=== PATIENT | male | born 1995 | race Caucasian/White ===

== ENCOUNTER 2017-01-12 09:54 | Emergency (ER) | payer OTHER, SELFPAY | END 2017-01-12 11:43 | disposition home or self-care (01) | LOC: MADERS 09:54 | DX: B34.9 Viral infection, unspecified (principal); F17.210 Nicotine dependence, cigarettes, uncomplicated | CPT/HCPCS: 99283 ==

== ENCOUNTER 2017-04-28 19:29 | Emergency (ER) | payer SELFPAY ==
[2017-04-28] MEDS ORDERED: Ondansetron ODT 4 MG TAB ONE (20:51)
== END 2017-04-28 21:03 | disposition home or self-care (01) ==
LOC: MADERS 19:29
DX: K52.9 Noninfective gastroenteritis and colitis, unspecified (principal); F17.210 Nicotine dependence, cigarettes, uncomplicated; F31.9 Bipolar disorder, unspecified; F90.9 Attention-deficit hyperactivity disorder, unspecified type
CPT/HCPCS: 99283; Q0162

== ENCOUNTER 2017-06-26 17:00 | Emergency (ER) | payer SELFPAY ==
[2017-06-26] MEDS ORDERED: HYDROcodone/Acetaminophen 10/325 mg Tablet ONE (19:39)
[2017-06-26] MEDS ORDERED: Adacel (T-DAP) 0.5 ML VIAL ONE (19:39)
[2017-06-26] MEDS ORDERED: Ciprofloxacin 500 MG TAB ONE (19:39)
[2017-06-26] MEDS ORDERED: Naproxen 500 MG TAB ONE (19:39)
--- NOTE | 2017-06-26 20:35 | RAD ---
RIGHT THUMB THREE VIEWS: HISTORY: Right thumb injury. FINDINGS: Joint spaces are preserved. No acute fracture, dislocation, or metallic foreign bodies. IMPRESSION: No acute osseous abnormalities are demonstrated. POS: [facility]
== END 2017-06-26 20:10 | disposition home or self-care (01) ==
LOC: MADERS 17:00
DX: S61.011A Laceration without foreign body of right thumb without damage to nail, initial encounter (principal); F90.9 Attention-deficit hyperactivity disorder, unspecified type; F31.9 Bipolar disorder, unspecified; F17.210 Nicotine dependence, cigarettes, uncomplicated; W45.0XXA Nail entering through skin, initial encounter
CPT/HCPCS: 90471; 90715

== ENCOUNTER 2018-03-22 08:34 | Emergency (ER) | payer SELFPAY | END 2018-03-22 09:07 | disposition home or self-care (01) | LOC: MADERS 08:34 | DX: R10.819 Abdominal tenderness, unspecified site (principal); R07.89 Other chest pain; F90.9 Attention-deficit hyperactivity disorder, unspecified type; F31.9 Bipolar disorder, unspecified | CPT/HCPCS: 99282 ==

== ENCOUNTER 2018-05-12 23:01 | Emergency (ER) | payer OTHER, SELFPAY ==
[2018-05-12] MEDS ORDERED: Ibuprofen 800 MG TAB ONE (23:21)
--- NOTE | 2018-05-12 23:44 | RAD ---
LEFT RIBS GREATER THAN OR EQUAL TWO VIEW WITH PA CHEST X-RAY 05/12/18 HISTORY: Trauma. COMPARISON: None. FINDINGS: Lungs are clear. No displaced left sided rib fracture. The cardiac silhouette and mediastinal contour is within normal limits. IMPRESSION: Normal exam. POS: [facility]
== END 2018-05-13 00:09 | disposition home or self-care (01) ==
LOC: MADERS 23:01
DX: S20.212A Contusion of left front wall of thorax, initial encounter (principal); F90.9 Attention-deficit hyperactivity disorder, unspecified type; F31.9 Bipolar disorder, unspecified; Z87.891 Personal history of nicotine dependence; W01.0XXA Fall on same level from slipping, tripping and stumbling without subsequent striking against object, initial encounter

== ENCOUNTER 2019-08-28 14:40 | Emergency (ER) | payer SELFPAY ==
[2019-08-28 15:51] LABS: #Basophils 0.1 thou/uL (0.0-0.2); #Eosinphils 0.1 thou/uL (0.0-0.7); #Lymphocytes 2.5 thou/uL (1.20-3.40); #Monocytes 0.7 thou/uL (0.11-0.59); #Neutrophils 6.1 thou/uL (1.40-6.50); %Basophils 1.3 % (0.0-1.0); %Eosinophils 1.5 % (0.0-10.0); %Monocytes 7.4 % (0.0-10.0); %Neutrophils 63.8 % (42.0-75.0); Hemoglobin 14.5 g/dL (14.0-18.0); Mean Corpuscular HGB CONC 32.2 g/dL (32.0-36.0); Mean Corpuscular Hemoglobin 27.9 pg (27.0-31.0); Mean Corpuscular Volume 86.7 fL (78.0-98.0); Mean Platelet Volume 6.8 fL (7.4-10.4); Platelet Count 303 thou/uL (130-400); RBC Distribution Width 12.4 % (11.5-14.5); Red Blood Cell (RBC) Count 5.21 mill/uL (4.70-6.10); White Blood Cell (WBC) Count 9.6 thou/uL (4.8-10.8)
[2019-08-28 16:11] LABS: ALT (SGPT) 77 U/L (8-55); AST (SGOT) 31 U/L (5-34); Albumin 4.5 g/dL (3.5-5.0); Alkaline Phosphatase 85 U/L (40-110); Anion Gap 15 mmol/L (10-20); BUN (Urea Nitrogen) 14 mg/dL (8.9-20.6); Bilirubin, Total 0.4 mg/dL (0.2-1.2); Calc. Creatinine Clearance 0 mL/min (70-130); Calcium 9.2 mg/dL (7.8-10.44); Carbon Dioxide 24 mmol/L (22-29); Chloride 107 mmol/L (98-107); Estimated GFR-MDRD Greater than 90; Globulin 2.7 g/dL (2.4-3.5); Glucose 106 mg/dL (70-105); Potassium 3.9 mmol/L (3.5-5.1); Protein, Total 7.2 g/dL (6.0-8.3); Sodium 142 mmol/L (136-145)
[2019-08-28 16:24] LABS: Bilirubin Negative (Negative); Blood, Urine Negative (Negative); Clarity Clear (Clear); Glucose, Urine (Dipstick) Negative (Negative); Leukocyte Negative (Negative); Nitrite Negative (Negative); Protein, Urine (Dipstick) Negative (Neg-Trace); Urobilinogen 0.2 mg/dL (Less than 2)
[2019-08-28 16:34] LABS: Amphetamine Not Detected (NotDetected); Barbiturates Screen Not Detected (NotDetected); Benzodiazepine Screen Not Detected (NotDetected); Cocaine Metabolite Screen Not Detected (NotDetected); Medtox Control Line Valid? VALID (VALID); Methadone Not Detected (NotDetected); Methamphetamine Not Detected (NotDetected); Opiate Screen Not Detected (NotDetected); Oxycodone Screen Not Detected (NotDetected); Phencyclidine (PCP) Not Detected (NotDetected); THC/Cannabinoid Screen Not Detected (NotDetected); Tricyclic Screen Not Detected (NotDetected)
[2019-08-28 17:55] LABS: Troponin I Less than 0.010 ng/mL (< 0.028)
--- NOTE | 2019-08-28 17:55 | RAD ---
AP CHEST: 08/28/19 HISTORY: Chest pain. The lungs are clear. Heart and mediastinum appear normal. Vasculature normal. IMPRESSION: Negative portable chest. POS: [facility]
== END 2019-08-28 18:10 | disposition home or self-care (01) ==
LOC: MADERS 14:40
DX: R07.89 Other chest pain (principal); F90.9 Attention-deficit hyperactivity disorder, unspecified type; F31.9 Bipolar disorder, unspecified; Z87.891 Personal history of nicotine dependence
CPT/HCPCS: 36415; 71045; 80053; 80306; 81003; 84484; 85025; 93005; 94760

== ENCOUNTER 2019-09-13 13:02 | Emergency (ER) | payer SELFPAY ==
--- NOTE | 2019-09-13 14:35 | RAD ---
Exam: Single view of the chest and 2 views of the abdomen HISTORY: Abdominal pain COMPARISON: None FINDINGS: 2 views of the abdomen and a single view the chest shows a nonspecific, nonobstructive cortez l gas pattern. Air is seen to the level of the rectum. No free air or air-fluid levels are seen on upright examination. The cardiomediastinal silhouette is normal in size. There is no evidence of consolidation, mass, or p leural effusion. IMPRESSION: Nonobstructive bowel gas pattern
[2019-09-13 14:44] LABS: #Basophils 0.1 thou/uL (0.0-0.2); #Eosinphils 0.1 thou/uL (0.0-0.7); #Lymphocytes 2.2 thou/uL (1.20-3.40); #Monocytes 0.5 thou/uL (0.11-0.59); #Neutrophils 7.2 thou/uL (1.40-6.50); %Basophils 1.2 % (0.0-1.0); %Eosinophils 0.5 % (0.0-10.0); %Monocytes 4.5 % (0.0-10.0); %Neutrophils 71.7 % (42.0-75.0); Hemoglobin 15.7 g/dL (14.0-18.0); Mean Corpuscular HGB CONC 31.7 g/dL (32.0-36.0); Mean Corpuscular Hemoglobin 27.6 pg (27.0-31.0); Mean Corpuscular Volume 87.2 fL (78.0-98.0); Mean Platelet Volume 7.2 fL (7.4-10.4); Platelet Count 330 thou/uL (130-400); RBC Distribution Width 12.2 % (11.5-14.5); Red Blood Cell (RBC) Count 5.69 mill/uL (4.70-6.10); White Blood Cell (WBC) Count 10.1 thou/uL (4.8-10.8)
[2019-09-13 14:57] LABS: CRP (Inflammatory) 0.57 mg/dL (= or < 0.5)
[2019-09-13 15:01] LABS: ALT (SGPT) 72 U/L (8-55); AST (SGOT) 34 U/L (5-34); Albumin 4.8 g/dL (3.5-5.0); Alkaline Phosphatase 98 U/L (40-110); Anion Gap 17 mmol/L (10-20); BUN (Urea Nitrogen) 12 mg/dL (8.9-20.6); Bilirubin, Total 0.6 mg/dL (0.2-1.2); Calc. Creatinine Clearance 0 mL/min (70-130); Calcium 9.5 mg/dL (7.8-10.44); Carbon Dioxide 24 mmol/L (22-29); Chloride 105 mmol/L (98-107); Estimated GFR-MDRD 83; Globulin 2.8 g/dL (2.4-3.5); Glucose 87 mg/dL (70-105); Potassium 4.2 mmol/L (3.5-5.1); Protein, Total 7.6 g/dL (6.0-8.3); Sodium 142 mmol/L (136-145)
== END 2019-09-13 15:10 | disposition home or self-care (01) ==
LOC: MADERS 13:02
DX: K59.00 Constipation, unspecified (principal); R11.2 Nausea with vomiting, unspecified; Z87.891 Personal history of nicotine dependence
CPT/HCPCS: 36415; 74022; 80053; 82150; 83690; 85025; 86140

== ENCOUNTER 2019-11-01 14:35 | Emergency (ER) | payer SELFPAY | END 2019-11-01 15:03 | disposition home or self-care (01) | LOC: MADERS 14:35 | DX: G51.0 Bell's palsy (principal); F17.220 Nicotine dependence, chewing tobacco, uncomplicated; K21.9 Gastro-esophageal reflux disease without esophagitis; F31.9 Bipolar disorder, unspecified; F90.9 Attention-deficit hyperactivity disorder, unspecified type | CPT/HCPCS: 99283 ==

== ENCOUNTER 2020-02-25 21:53 | Emergency (ER) | payer SELFPAY ==
[2020-02-25] MEDS ORDERED: Dexamethasone 10 MG/ML VIAL ONE (22:28)
[2020-02-25] MEDS ORDERED: Ondansetron ODT 4 MG TAB ONE (22:31)
[2020-02-26 18:22] LABS: SARS-CoV-2 MS2 Positive; SARS-CoV-2 N Gene Negative; SARS-CoV-2 S Gene Negative; SARS-CoV-2 by NAA Not Detected (NotDetected); SARS-CoV-2 orf1ab Negative
== END 2020-02-25 22:38 | disposition home or self-care (01) ==
LOC: MADERS 21:53
DX: J02.9 Acute pharyngitis, unspecified (principal); R05 Cough; Z20.828 Contact with and (suspected) exposure to other viral communicable diseases; K21.9 Gastro-esophageal reflux disease without esophagitis; F17.210 Nicotine dependence, cigarettes, uncomplicated
CPT/HCPCS: 87635; 99283; J1100; Q0162; U0003

== ENCOUNTER 2020-12-25 16:08 | Emergency (ER) | payer SELFPAY | END 2020-12-25 16:59 | disposition home or self-care (01) | LOC: MADERS 16:08 | DX: S81.812D Laceration without foreign body, left lower leg, subsequent encounter (principal); K21.9 Gastro-esophageal reflux disease without esophagitis; F17.220 Nicotine dependence, chewing tobacco, uncomplicated; V59.9XXA Occupant (driver) (passenger) of pick-up truck or van injured in unspecified traffic accident, initial encounter | CPT/HCPCS: 99282 ==

== ENCOUNTER 2021-04-15 20:19 | Emergency (ER) | payer SELFPAY ==
[2021-04-15] MEDS ORDERED: Iopamidol 370 76% 100 ML VIAL IV ONE (20:20)
[2021-04-15] MEDS ORDERED: Ondansetron PF 4 MG/2 ML Vial ONE (21:38)
[2021-04-15] MEDS ORDERED: Lactated Ringer's 1,000 ML ONE (21:38)
[2021-04-15 21:40] LABS: #Basophils 0.1 thou/uL (0.0-0.2); #Eosinphils 0.1 thou/uL (0.0-0.7); #Neutrophils 11.9 thou/uL (1.40-6.50); %Basophils 0.7 % (0.0-1.0); %Eosinophils 0.5 % (0.0-10.0); %Lymphocytes 13.4 % (21.0-51.0); %Monocytes 6.3 % (0.0-10.0); Hemoglobin 15.6 g/dL (14.0-18.0); Mean Corpuscular HGB CONC 32.9 g/dL (32.0-36.0); Mean Corpuscular Hemoglobin 28.1 pg (27.0-31.0); Mean Corpuscular Volume 85.2 fL (78.0-98.0); Mean Platelet Volume 5.7 fL (7.4-10.4); Platelet Count 280 thou/uL (130-400); RBC Distribution Width 11.9 % (11.5-14.5); Red Blood Cell (RBC) Count 5.56 mill/uL (4.70-6.10); White Blood Cell (WBC) Count 15.1 thou/uL (4.8-10.8)
[2021-04-15 22:02] LABS: ALT (SGPT) 60 U/L (8-55); AST (SGOT) 25 U/L (5-34); Albumin 4.8 g/dL (3.5-5.0); Alkaline Phosphatase 91 U/L (40-110); Anion Gap 17 mmol/L (10-20); BUN (Urea Nitrogen) 11 mg/dL (8.9-20.6); Bilirubin, Total 0.9 mg/dL (0.2-1.2); Calc. Creatinine Clearance 0 mL/min (70-130); Calcium 9.5 mg/dL (7.8-10.44); Carbon Dioxide 24 mmol/L (22-29); Chloride 104 mmol/L (98-107); Glucose 99 mg/dL (70-105); Lipase 21 U/L (8-78); Magnesium 1.8 mg/dL (1.6-2.6); Potassium 3.9 mmol/L (3.5-5.1); Protein, Total 7.8 g/dL (6.0-8.3); Sodium 141 mmol/L (136-145)
[2021-04-15] MEDS ORDERED: Morphine 4 MG/ML VIAL ONE (22:35)
[2021-04-15] MEDS ORDERED: metroNIDAZOLE 500 MG/100 ML BAG ONE (23:50)
[2021-04-16 00:29] LABS: Bilirubin Negative (Negative); Blood, Urine Negative (Negative); Clarity Clear (Clear); Glucose, Urine (Dipstick) Negative (Negative); Ketone, Urine Negative (Negative); Leukocyte Negative (Negative); Nitrite Negative (Negative); Protein, Urine (Dipstick) Negative (Neg-Trace); Urobilinogen 0.2 mg/dL (Less than 2)
[2021-04-16 03:13] LABS: SARS-CoV-2 NAA Rapid Test DETECTED (NotDetected)
[2021-04-16] MEDS ORDERED: metroNIDAZOLE 500 MG/100 ML BAG ONE (08:04)
[2021-04-16] MEDS ORDERED: Fentanyl 100 MCG/2 ML VIAL ONE (10:28)
[2021-04-16] MEDS ORDERED: Midazolam HCl 2 mg/2 ml Vial ONE (10:28)
== END 2021-04-16 09:20 | disposition short-term general hospital (02) ==
LOC: MADERS 20:19
DX: U07.1 COVID-19 (principal); K35.80 Unspecified acute appendicitis; K21.9 Gastro-esophageal reflux disease without esophagitis; F17.220 Nicotine dependence, chewing tobacco, uncomplicated
CPT/HCPCS: 74177; 80053; 81003; 83605; 83690; 83735; 85025; 96365; 96366; 96367; 96372; 96375; J0500; J1956; J2250; J2270; J2405; J3010; J7120; Q9967; U0002

== ENCOUNTER 2022-02-08 06:50 | Emergency (ER) | payer SELFPAY | END 2022-02-08 08:01 | disposition home or self-care (01) | LOC: MADERS 06:50 | DX: J22 Unspecified acute lower respiratory infection (principal); K21.9 Gastro-esophageal reflux disease without esophagitis; F17.220 Nicotine dependence, chewing tobacco, uncomplicated | CPT/HCPCS: 71045; J7620 ==

== ENCOUNTER 2023-03-14 13:54 | Emergency (ER) | payer OTHER, SELFPAY ==
[~2023-03-14 13:54] MED LIST: Iopamidol 370 76% 100 ML VIAL ONE
[2023-03-14 14:34] LABS: #Basophils 0.1 thou/uL (0.0-0.2); #Eosinphils 0.1 thou/uL (0.0-0.7); #Lymphocytes 1.8 thou/uL (1.20-3.40); #Monocytes 0.6 thou/uL (0.11-0.59); #Neutrophils 7.6 thou/uL (1.40-6.50); %Lymphocytes 17.6 % (21.0-51.0); %Monocytes 5.4 % (0.0-10.0); Hematocrit 47.2 % (42.0-52.0); Hemoglobin 15.2 g/dL (14.0-18.0); Mean Corpuscular HGB CONC 32.2 g/dL (32.0-36.0); Mean Corpuscular Hemoglobin 28.5 pg (27.0-31.0); Mean Corpuscular Volume 88.4 fl (78.0-98.0); Mean Platelet Volume 7.7 fL (7.4-10.4); Platelet Count 280 10x3/uL (130-400); RBC Distribution Width 12.4 % (11.5-14.5); Red Blood Cell (RBC) Count 5.33 mill/uL (4.70-6.10); White Blood Cell (WBC) Count 10.2 10x3/uL (4.8-10.8)
[2023-03-14] MEDS ORDERED: Ketorolac Tromethamine 30 MG/ML VIAL ONE (14:38)
[2023-03-14] MEDS ORDERED: Orphenadrine Citrate 60 MG/2 ML VIAL ONE (14:38)
[2023-03-14 14:44] LABS: Anion Gap 16 mmol/L (10-20); BUN (Urea Nitrogen) 15 mg/dL (8.9-20.6); Calc. Creatinine Clearance 0 mL/min (70-130); Calcium 9.6 mg/dL (7.8-10.44); Carbon Dioxide 24 mmol/L (22-29); Chloride 107 mmol/L (98-107); Estimated GFR 117; Glucose 107 mg/dL (70-105); Sodium 143 mmol/L (136-145)
== END 2023-03-14 17:15 | disposition home or self-care (01) ==
LOC: MADERS 13:54
DX: M25.512 Pain in left shoulder (principal); M47.895 Other spondylosis, thoracolumbar region; K44.9 Diaphragmatic hernia without obstruction or gangrene; K40.90 Unilateral inguinal hernia, without obstruction or gangrene, not specified as recurrent; M79.10 Myalgia, unspecified site; F17.220 Nicotine dependence, chewing tobacco, uncomplicated; V43.62XA Car passenger injured in collision with other type car in traffic accident, initial encounter
CPT/HCPCS: 70450; 72125; 74177; 80048; 85025; 96374; J1885; J2360; Q9967

== ENCOUNTER 2023-10-23 17:50 | Emergency (ER) | payer OTHER, SELFPAY ==
[2023-10-23] MEDS ORDERED: Bacitracin 1 PK ONE (18:17)
[2023-10-23] MEDS ORDERED: Boostrix 0.5 ML (Tdap) VIAL (>/=7 yrs of age) ONE (18:17)
== END 2023-10-23 18:41 | disposition home or self-care (01) ==
LOC: MADERS 17:50
DX: S90.811A Abrasion, right foot, initial encounter (principal); L03.115 Cellulitis of right lower limb; F17.220 Nicotine dependence, chewing tobacco, uncomplicated; Z23 Encounter for immunization; W22.8XXA Striking against or struck by other objects, initial encounter
CPT/HCPCS: 90471; 90715

== ENCOUNTER 2023-12-11 09:49 | Emergency (ER) | payer SELFPAY ==
[2023-12-11] MEDS ORDERED: Naproxen 500 MG TAB ONE (10:21)
== END 2023-12-11 10:34 | disposition home or self-care (01) ==
LOC: MADERS 09:49
DX: S39.012A Strain of muscle, fascia and tendon of lower back, initial encounter (principal); F17.220 Nicotine dependence, chewing tobacco, uncomplicated; X50.3XXA Overexertion from repetitive movements, initial encounter
CPT/HCPCS: 99283

== ENCOUNTER 2024-03-15 18:32 | Emergency (ER) | payer BC, SELFPAY ==
[2024-03-15] MEDS ORDERED: predniSONE 20 MG TAB ONE (19:53)
== END 2024-03-15 20:09 | disposition home or self-care (01) ==
LOC: MADERS 18:32
DX: J06.9 Acute upper respiratory infection, unspecified (principal); F17.220 Nicotine dependence, chewing tobacco, uncomplicated
CPT/HCPCS: 87400; 87426; 99283; J7512

== ENCOUNTER 2024-04-21 12:47 | Emergency (ER) | payer BC ==
[2024-04-21] MEDS ORDERED: HYDROcodone/Acetaminophen 10/325 mg Tablet ONE (13:13)
== END 2024-04-21 13:45 | disposition home or self-care (01) ==
LOC: MADERS 12:47
DX: S92.521A Displaced fracture of middle phalanx of right lesser toe(s), initial encounter for closed fracture (principal); W20.8XXA Other cause of strike by thrown, projected or falling object, initial encounter
CPT/HCPCS: 99283